=== PATIENT | male | born 1985 | race Two or more races ===

== ENCOUNTER 2023-06-01 12:03 | Emergency (ER) | payer MEDICAID ==
[~2023-06-01] VITALS: Ht 180.3 cm; Wt 93.0 kg
[2023-06-01 12:32] VITALS: BP 95/64; PULSE 83; RESP 16; TEMP 97.1
[2023-06-01] MEDS: KETOROLAC TROMETHAMINE 30 MG/ML VIAL IM ONE (15:50)
== END 2023-06-01 15:56 | disposition still patient (30) ==
LOC: EMS 12:03
DX: M25.531 Pain in right wrist (principal)
CPT/HCPCS: 99283; 73110; 96372; J1885